=== PATIENT | female | born 1995 | race Caucasian/White ===

== ENCOUNTER 2019-09-12 13:11 | Emergency (ER) | payer OTHER, SELFPAY ==
[~2019-09-12] VITALS: Ht 167.6 cm; Wt 122.5 kg
[2019-09-12 13:22] VITALS: Ht 167.6 cm; Wt 122.5 kg
[2019-09-12 14:26] VITALS: BP 150/68
== END 2019-09-12 14:26 | disposition home or self-care (01) ==
LOC: ED 13:11
DX: R51 Headache (principal); R05 Cough; J02.9 Acute pharyngitis, unspecified; Z20.828 Contact with and (suspected) exposure to other viral communicable diseases
CPT/HCPCS: U0003-CS